=== PATIENT | male | born 1990 ===

== ENCOUNTER 2018-04-26 03:30 | Emergency (ER) | payer OTHER ==
--- NOTE | 2018-04-26 04:47 | ED PDOC ---
HPI: Psych/Substance Abuse Time Seen by Provider: 04/26/18 03:40 Chief Complaint (Nursing): Alcohol Ingestion Chief Complaint (Provider): Intoxication ED Caveat: Intoxicated History Per: Patient, EMS History/Exam Limitations: intoxication Current Symptoms Are (Timing): Still Present Modifying Factor(s): Alcohol Additional Complaint(s): 28 year old male presents to the ED via EMS for alcohol intoxication. History limited due to intoxication. PMD: none provided Past Medical History Reviewed: Historical Data, Nursing Documentation, Vital Signs, Unable To Obtain Vital Signs: Last Vital Signs Temp 96.5 F L 04/26/18 03:36 Pulse 84 04/26/18 03:36 Resp 18 04/26/18 03:36 BP Pulse Ox 95 04/26/18 03:36 - Family History Family History: States: Unknown Family Hx - Allergies Allergies/Adverse Reactions: Allergies Allergy/AdvReac Type Severity Reaction Status Date / Time No Known Allergies Allergy Verified 04/26/18 03:35 Review of Systems Review Of Systems: ROS cannot be obtained secondary to pt's inabilty to answer questions. (intoxication) Physical Exam - Reviewed Nursing Documentation Reviewed: Yes Vital Signs Reviewed: Yes - Physical Exam Appears: Positive for: Non-toxic, No Acute Distress (appears intoxicated and drowsy) Head Exam: Positive for: NORMOCEPHALIC. Negative for: ATRAUMATIC (Hematoma and abrasion to back of head) Skin: Positive for: Normal Color, Warm, Dry Eye Exam: Positive for: Normal appearance Neck: Positive for: Normal, Painless ROM Cardiovascular/Chest: Positive for: Regular Rate, Rhythm Respiratory: Positive for: Normal Breath Sounds. Negative for: Wheezing, Respiratory Distress Extremity: Positive for: Normal ROM Neurologic/Psych: Positive for: Other (Slurred speech) Comments: Abrasion and hematoma to the back of the head. - ECG O2 Sat by Pulse Oximetry: 95 (RA) Pulse Ox Interpretation: Normal Medical Decision Making Medical Decision Making: Initial Impression: 28 year old male with alcohol intoxication with a head injury Initial Plan: --Head CT Will order Head CT and monitor until sober. 07:[address] Bautista. Pending sobriety. Scribe Attestation: Documented by Dionte Davison acting as a scribe for Tunde Junior MD. Provider Scribe Attestation: All medical record entries made by the Scribe were at my direction and personally dictated by me. I have reviewed the chart and agree that the record accurately reflects my personal performance of the history, physical exam, medical decision making, and the department course for this patient. I have also personally directed, reviewed, and agree with the discharge instructions and disposition. Disposition - Clinical Impression Clinical Impression: Alcohol abuse - Patient ED Disposition Is Patient to be Admitted: Transfer of Care - Disposition Disposition: Transfer of Care Disposition Time: 07:00 Condition: STABLE Forms: [employer] (N[place]ian) Patient Signed Over To: Mikaela Bautista Handoff Comments: pending sobriety
[2018-04-26 07:20] LABS: BARBITURATES, UR NEGATIVE (NEGATIVE); BENZODIAZEPINES, UR NEGATIVE (NEGATIVE); OPIATES, UR NEGATIVE (NEGATIVE); PHENCYCLIDINE, UR NEGATIVE (NEGATIVE)
--- NOTE | 2018-04-26 07:29 | ED PDOC ---
- ECG O2 Sat by Pulse Oximetry: 95 (RA) Pulse Ox Interpretation: Normal Medical Decision Making Medical Decision Making: Time: 07 -- Patient endorsed to me by Dr. Junior, pending clinical sobriety. Time: 926 -- Patient is awake, alert and oriented (x3) with a steady gait. Patient is stable for discharge home. Scribe Attestation: Documented by Nuno Santo, acting as a scribe for Mikaela Bautista MD. Provider Scribe Attestation: All medical record entries made by the Scribe were at my direction and personally dictated by me. I have reviewed the chart and agree that the record accurately reflects my personal performance of the history, physical exam, medical decision making, and the department course for this patient. I have also personally directed, reviewed, and agree with the discharge instructions and disposition. Disposition Counseled Patient/Family Regarding: Diagnosis, Need For Followup - Clinical Impression Clinical Impression: Alcohol abuse with intoxication - Disposition Referrals: [facility] [Outside] Disposition: Routine/Home Disposition Time: 09:28 Condition: IMPROVED Instructions: Alcohol Abuse and Alcoholism (DC) Forms: [employer] (French)
[2018-04-26 09:21] VITALS: BP 133/100; PULSE 98; RESP 18; TEMP 98.3
--- NOTE | 2018-04-26 09:21 | CT ---
Date of service: 04/26/2018 PROCEDURE: CT HEAD WITHOUT CONTRAST. HISTORY: intox, head injury COMPARISON: None available. TECHNIQUE: Axial computed tomography images were obtained through the head/brain without intravenous contrast. Radiation dose: Total exam DLP = 1344.59 mGy-cm. This CT exam was performed using one or more of the following dose reduction techniques: Automated exposure control, adjustment of the mA and/or kV according to patient size, and/or use of iterative reconstruction technique. FINDINGS: HEMORRHAGE: No intracranial hemorrhage. BRAIN: No mass effect or edema. No atrophy or chronic microvascular ischemic changes. VENTRICLES: Unremarkable. No hydrocephalus. CALVARIUM: Unremarkable. PARANASAL SINUSES: Extensive bilateral maxillary sinus disease. MASTOID AIR CELLS: Unremarkable as visualized. No inflammatory changes. OTHER FINDINGS: None. IMPRESSION: No acute hemorrhage.
[2018-04-26 10:14] VITALS: O2SAT 99
== END 2018-04-26 09:35 | disposition home or self-care (01) ==
LOC: H.ER 03:30
DX: F10.129 Alcohol abuse with intoxication, unspecified (principal); S09.90XA Unspecified injury of head, initial encounter; W19.XXXA Unspecified fall, initial encounter; Y92.89 Other specified places as the place of occurrence of the external cause